=== PATIENT | female | born 1950 | race Caucasian/White ===

== ENCOUNTER 2022-12-24 09:03 | Day surgery (SDC) | payer OTHER ==
[~2022-12-24] VITALS: Ht 121.9 cm; Wt 54.4 kg
[~2022-12-24 09:03] MED LIST: CALC-1086 PO; CHOL400T PO; GEMF-65 PO
[2022-12-24] MEDS ORDERED: fentaNYL citrate 0.05 MG/ML VIAL ONE (09:24)
[2022-12-24] MEDS ORDERED: diphenhydrAMINE 50 MG/ML VIAL ONE (09:24)
[2022-12-24] MEDS ORDERED: MIDAZOLAM 5 MG/5 ML VIAL ONE (09:24)
[2022-12-24] MEDS ORDERED: LIDOCAINE 2% 100 MG/5 ML UJET TP ONE (09:24)
[2022-12-24] MEDS ORDERED: MIDAZOLAM 2 MG/2 ML VIAL IVP ONE (11:55)
[2022-12-24] MEDS ORDERED: fentaNYL citrate 0.05 MG/ML VIAL IVP ONE (11:55)
== END 2022-12-24 11:20 | disposition home or self-care (01) ==
LOC: MDS 09:03 → MMU 09:06 → MDS 11:20
PROVIDERS: ATTEND Internal Medicine Gastroenterology
DX: K62.5 Hemorrhage of anus and rectum (principal); K64.8 Other hemorrhoids; E11.9 Type 2 diabetes mellitus without complications; Z79.84 Long term (current) use of oral hypoglycemic drugs; Z79.899 Other long term (current) drug therapy
CPT/HCPCS: 45378; 82948; J2250; J3010; J1200